=== PATIENT | female | born 1990 | race Caucasian/White ===

== ENCOUNTER → 2022-06-02 10:24 | Outpatient (BNVA) | payer BC, SELFPAY | PROVIDERS: PCP Nurse Practitioner Family; Visit Provider Nurse Practitioner Family | DX: Z13.220 Encounter for screening for lipoid disorders (principal); J30.2 Other seasonal allergic rhinitis | CPT/HCPCS: 80053; 80061 ==

== ENCOUNTER 2022-12-01 22:45 | Emergency (ER) | payer OTHER, SELFPAY ==
[2022-12-01 22:55] VITALS: BP 155/84; PULSE 103; RESP 16; TEMP 36.7; O2SAT 100; BMI 28.3
--- NOTE | 2022-12-01 23:12 | ED_ITS ---
HPI - General: Chief complaint: Vaginal Bleeding Stated complaint: abd pain/ 8 weeks Time Seen by Provider: 12/01/22 22:50 History of Present Illness: 32-year-old female comes in today with complaints of lower abdominal cramping and spotting. Patient's last menstrual cycle was 16 October. Patient believes that she is approximately 8 weeks . Patient came in tonight due to having to blood clots with urination. Patient denies any heavy bleeding. Patient appears nontoxic. Patient has had 1 other with 1 live , and patient has been on control, Depo-Medrol since then. Patient stopped Depo-Medrol in August when her last shot was due with planning for . Associated symptoms: Reports malaise Review of Systems Const: Reports: chills and malaise; Denies: fever(s) : Reports: vaginal bleeding (Spotting) and pelvic pain PFS ED PFSH: Social History Smoking and tobacco status: former smoker Physical Exam Const: COMMON NORMALS: alert HENMT: COMMON NORMALS: normocephalic HEAD & SCALP: normocephalic Neck/C-Spine: COMMON NORMALS: full ROM Resp: COMMON NORMALS: normal respiratory effort and clear to auscultation bilaterally AUSCULTATION: clear to auscultation bilaterally Cardio: COMMON NORMALS: regular rate and regular rhythm RATE: regular rate RHYTHM: regular rhythm : COMMON NORMALS: Yes no CVA tenderness BLADDER/KIDNEY EXAM: Yes no CVA tenderness Back/Pelvis: COMMON NORMALS: no CVA tenderness and thoracic and lumbar spine normal to inspection Extremity: COMMON NORMALS: normal to inspection and no pedal edema Neuro: SENSORIUM/ORIENTATION: Yes alert Skin: COMMON NORMALS: turgor normal GENERAL SKIN EXAM: turgor normal Course Vital Signs: Vital signs: Vital Signs Temperature 98.1 F 12/02/22 01:09 Pulse Rate 103 H 12/02/22 01:09 Respiratory Rate 16 12/02/22 01:09 Blood Pressure 155/84 12/02/22 01:09 Pulse Oximetry 100 12/02/22 01:09 Oxygen Delivery Me thod Room Air 12/01/22 22:55 MDM - OB/Uterine Contractions Medical Decision Making 32-year-old female comes in today for complaints of lower abdominal cramping and spotting. Patient is approximately 8 weeks . Patient appears nontoxic. Patient appears in no pain. No CVA tenderness. No abdominal pain. Vital signs are normal except for some mild elevation of blood pressure 155 systolic. Differential diagnosis includes threatened miscarriage, urinary tract infection, subchorionic hemorrhage, ectopic . Patient CBC was normal. CMP did not have some changes in her sodium and potassium with at 135 and 3.4. Remainder of CMP was normal. Urinalysis was clean. Patient was given some lactated Ringer's for concerns of dehydration. Ultrasound of the fetus noted a in utero and with a heart rate of 176 and no signs of subchorionic hemorrhage or other abnormality. There was a uterine fibroid noted and minimal to no blood flow noted to the left ovary. I reviewed this with Dr. Garcia who recommended the contact Dr. Rosen, QU[facility] SUPERVISOR for further recommendations. I discussed with Dr. Rosen abnormality on the ultrasound he felt that the patient was not symptomatic most likely and did not require any intervention at this time. Patient was recommended to follow-up with [facility] SUPER[facility]OR for further evaluation and treatment with recommendations to return to the ER for worsening symptoms such as increased pain, fever greater than 100.4, or bleeding greater than 1 pad an hour. Patient reported understanding and agreed to plan. Lab Data 12/01/22 22:59 12/01/22 22:59 Laboratory Results WBC 10.94 10^3/uL (3.29-11.43) 12/01/22 22:59 RBC 4.43 10^6/uL (3.85-5.65) 12/01/22 22:59 Hgb 13.60 g/dL (11.27-16.99) 12/01/22 22:59 Hct 39.3 % (36-47) 12/01/22 22:59 MCV 88.7 fl (85-98) 12/01/22 22:59 MCH 30.7 pg (27-33) 12/01/22 22: MCHC 34.6 g/dL (30-55) 12/01/22 22:59 RDW 11.7 % (12.1-15.1) L 12/01/22 22:59 Plt Count 290 10^3/cmm (157-399) 12/01/22 22: MPV 9.4 fL (7.4-10.4) 12/01/22 22:59 Neut % (Auto) 57.3 % 12/01/22 22:59 Lymph % (Auto) 31.5 % 12/01/22 22:59 Rowan % (Auto) 7.4 % 12/01/22 22:59 Eos % (Auto) 2.9 % 12/01/22 22:59 Baso % (Auto) 0.6 % 12/01/22 22:59 Neut # (Auto) 6.26 10^3/uL (1.8-7.7) 12/01/22 22:59 Lymph # (Auto) 3.5 10^3/uL (0.8-4.8) 12/01/22 22:59 Rowan # (Auto) 0.8 10^3/uL (0.2-0.9) 12/01/22 22:59 Eos # (Auto) 0.3 10^3/uL (0.0-0.8) 12/01/22 22:59 Baso # (Auto) 0.1 10^3/uL (0.0-0.1) 12/01/22 22:59 Nucleated RBC % (auto) 0 % 12/01/22 22:59 Nucleated RBCs # 0.0 /100WBC 12/01/22 22:59 Sodium 135 mmol/L (136-145) L 12/01/22 22:59 Potassium 3.4 mmol/L (3.5-5.1) L 12/01/22 22:59 Chloride 100 mmol/L (98-107) 12/01/22 22:59 Carbon Dioxide 23 mmol/L (22-29) 12/01/22 22:59 Anion Gap 15.4 (5-19) 12/01/22 22:59 BUN 8 mg/dL (6-20) 12/01/22 22:59 Creatinine 0.5 mg/dL (0.5-0.9) 12/01/22 22:59 GFR Calculation 141.2 mL/min (90-130) H 12/01/22 22:59 Glucose 121 mg/dL (65-115) H 12/01/22 22:59 Calculated Osmolality 280 mOsm/kg (285-295) L 12/01/22 22:59 Calcium 9.2 mg/dL (8.5-10.5) 12/01/22 22:59 Total Bilirubin 0.3 mg/dL (0.15-1.2) 12/01/22 22:59 AST 11 U/L (0-32) 12/01/22 22:59 ALT 16 U/L (0-33) 12/01/22 22:59 Alkaline Phosphatase 65 U/L (35-105) 12/01/22 22:59 Total Protein 7.0 g/dL (6.6-8.7) 12/01/22 22:59 Albumin 4.5 g/dL (3.5-5.2) 12/01/22 22:59 Globulin 2.5 g/dL (1.3-4.6) 12/01/22 22:59 Lipase 48 U/L (13-60) 12/01/22 22:59 HCG, Qual Positive (Negative) H 12/01/22 22:59 Ser , Semi-Qnt 321783.00 mIU/mL 12/01/22 22:59 Urine Color Yellow (Yellow) 12/01/22 23:35 Urine Appearance Clear (CLEAR) 12/01/22 23:35 Urine pH 7 (5-7) 12/01/22 23:35 Ur Specific [place] 1.015 (1.005-1.030) 12/01/22 23:35 Urine Protein Neg (Negative) 12/01/22 23:35 Urine Glucose (UA) Norm (Normal) 12/01/22 23:35 Urine Ketones 1+ (Negative) H 12/01/22 23:35 Urine Blood Neg (Negative) 12/01/22 23:35 Urine Nitrate Negative (Negative) 12/01/22 23:35 Urine Bilirubin Neg (Negative) 12/01/22 23:35 Urine Urobilinogen Neg mg/dL (Negative) 12/01/22 23:35 Ur Leukocyte Esterase Negative (Negative) 12/01/22 23:35 XR interpretation done by ED provider, pending radiology final review Discharge Plan Discharge Patient Disposition: Home Clinical Impression: Bleeding in early Condition: Stable Prescriptions: New Diclegis 10-10 mg tablet,delayed release (DR/EC) 1 tab PO BID Qty: 20 0RF No Action medroxyprogesterone [Depo-Provera] 150 mg/mL suspension 150 mg IM ONCE Qty: 1 3RF cephalexin 500 mg capsule 500 mg PO TID 10 Days Qty: 30 0RF multivitamin Tablet 1 tab PO DAILY Discharge Orders: Discharge ED (Routine); Ordered 12/02/22 Ordered By: Nraen Ritter Referrals: Nubia Lion NP [Primary Care Provider] - Discharge Diet: Usual diet Discharge Activity: Increase activity as tolerated Patient Instructions: Threatened Miscarriage (ED) Activity Restrictions/Additional Instructions: Drink plenty water and fluids. Eat a healthy diet. Activity as tolerated. Follow-up with [facility]TER SUPERVISOR for further evaluation and treatment. Return to ER for worsening symptoms such as bleeding through 1 pad more an hour, fever greater than 100.4, or uncontrolled abdominal pain. Coding Level of Care Code ED Prestidigitator for Holly Anderson
[2022-12-01 23:13] LABS: Basophils # 0.1 10^3/uL (0.0-0.1); Basophils % 0.6 %; Eosinophils # 0.3 10^3/uL (0.0-0.8); Eosinophils % 2.9 %; Hematocrit 39.3 % (36-47); Lymphocytes # 3.5 10^3/uL (0.8-4.8); Lymphocytes % 31.5 %; Mean Corpuscular HGB Conc 34.6 g/dL (30-55); Mean Corpuscular Hemoglobin 30.7 pg (27-33); Mean Corpuscular Volume 88.7 fl (85-98); Mean Platelet Volume 9.4 fL (7.4-10.4); Monocytes # 0.8 10^3/uL (0.2-0.9); Monocytes % 7.4 %; Neutrophils # 6.26 10^3/uL (1.8-7.7); Neutrophils % 57.3 %; Nucleated Red Blood Cells % 0 %; Platelet Count 290 10^3/cmm (157-399); Red Blood Count 4.43 10^6/uL (3.85-5.65); Red Cell Distribution Width 11.7 % (12.1-15.1); White Blood Count 10.94 10^3/uL (3.29-11.43)
[2022-12-01 23:22] LABS: Alanine Aminotransferase 16 U/L (0-33); Albumin Level 4.5 g/dL (3.5-5.2); Alkaline Phosphatase 65 U/L (35-105); Anion Gap 15.4 (5-19); Aspartate Amino Transferase 11 U/L (0-32); Blood Urea Nitrogen 8 mg/dL (6-20); Calcium 9.2 mg/dL (8.5-10.5); Carbon Dioxide 23 mmol/L (22-29); Chloride 100 mmol/L (98-107); Globulin 2.5 g/dL (1.3-4.6); Glomerular Filtration Rate 141.2 mL/min (90-130); Glucose 121 mg/dL (65-115); Lipase 48 U/L (13-60); Osmolality Calculated 280 mOsm/kg (285-295); Potassium 3.4 mmol/L (3.5-5.1); Sodium 135 mmol/L (136-145); Total Bilirubin 0.3 mg/dL (0.15-1.2)
--- NOTE | 2022-12-01 23:23 | USR_ITS ---
PROCEDURE INFORMATION: Exam: US Duplex Artery or Vein of the Abdominal and/or Reproductive Organs, Limited Ovaries Exam date and time: 12/02/2022 12:02 AM Age: 32 years old Clinical indication: Lmp or gestational age (in weeks): 8w 5d by today's u/s; Antepartum complications; Bleeding; ; Patient HX: G2-p1, first vaginal. Spotting lightly last few days. ; Additional info: Bleeding early TECHNIQUE: Imaging protocol: Real-time duplex ultrasound scan of the arterial or venous flow with ring scale, color Doppler flow and spectral waveform analysis with image documentation. Limited duplex exam focused on the ovaries. Duplex exam was performed to evaluate for torsion and other vascular conditions. COMPARISON: No relevant prior studies available. FINDINGS: Right ovary/adnexa: Normal duplex of the ovary. Normal Doppler waveforms and color flow. No evidence of ovarian torsion. See below OB report for other findings. Left ovary/adnexa: Left ovary shows no arterial flow. See cine clip 4. The ovary is not enlarged, which is somewhat unusual for torsion. PROCEDURE INFORMATION: Exam: US First Trimester, Transabdominal and US , Transvaginal Exam date and time: 12/02/2022 12:02 AM Age: 32 years old Clinical indication: Lmp or gestational age (in weeks): 8w 5d by today's u/s; Antepartum complications; Bleeding; ; Patient HX: G2-p1, first vaginal. Spotting lightly last few days. ; Additional info: Bleeding early TECHNIQUE: Imaging protocol: Real-time transabdominal obstetrical ultrasound of the maternal pelvis and a first trimester , less than 14 weeks 0 days, with image documentation. Transvaginal imaging was used for better evaluation of the fetus, adnexa, and/or cervix. COMPARISON: No relevant prior studies available. FINDINGS: Gestation: Intrauterine gestation. Yolk sac is unremarkable. Embryonic/ heart rate: 176 bpm. Extra-embryonic membranes/Placenta: Unremarkable. No subchorionic bleed. Amniotic fluid: Amniotic fluid and extra-amniotic fluid is normal for gestational age. BIOMETRY: Gestational age (AUA): 8 weeks 5 days with LADARIUS of 07/09/2023. MATERNAL: Uterus: Contains a small fibroid measuring about 3.9 x 2.2 x 3.1 cm. This is anterior and submucosal. . Cervix: Unremarkable. Right ovary/adnexa: 4.4 cm probable corpus luteum cyst. This enlarges the right ovary to 85 cc volume. Left ovary/adnexa: Left ovarian arterial flow not demonstrated. Intraperitoneal space: No intraperitoneal free fluid. US/US OB <= 14 weeks fetus [id number] IMPRESSION: Concern for LEFT ovarian torsion. Advise agricultural services director consult. Call to provider has been initiated. IMPRESSION: 1. Single live IUP as described. Full details above. 2. Concern for LEFT ovarian torsion. Advise agricultural services director consult. Call to provider has been initiated. 3. Right ovarian 4.4 cm probable corpus luteum cyst.
[2022-12-01 23:26] LABS: HCG, Serum Qual Positive (Negative)
[2022-12-01 23:43] LABS: Add Urine Microscopic? NO; Charge for UA Resulting for Rev
[2022-12-01 23:44] LABS: Bilirubin Urine Neg (Negative); Blood Urine Neg (Negative); Glucose Urine UA Norm (Normal); Ketones Urine 1+ (Negative); Leukocyte Esterase Urine Negative (Negative); Nitrate Urine Negative (Negative); Protein Urine Neg (Negative); Specific Gravity, Urine 1.015 (1.005-1.030); Urine Appearance Clear (CLEAR); Urine Color Yellow (Yellow); Urobilinogen Urine Neg (Negative); pH Urine 7 (5-7)
[2022-12-01] MEDS: lactated ringers 1,000 ML 999 ML IV (23:49)
[2022-12-02 01:09] VITALS: BP 155/84; PULSE 103; RESP 16; TEMP 36.7; O2SAT 100
== END 2022-12-02 01:10 | disposition home or self-care (01) ==
PROVIDERS: Emergency Medicine; Emergency Provider Nurse Practitioner Family; PCP Nurse Practitioner Family
DX: O20.9 Hemorrhage in early pregnancy, unspecified (principal); Z87.891 Personal history of nicotine dependence; Z3A.08 8 weeks gestation of pregnancy
CPT/HCPCS: 36415; 76801; 80053; 81003; 83690; 84702; 84703; 85025; 96360; 99284; J7120

== ENCOUNTER → 2023-01-04 09:37 | Outpatient (BNVA) | payer OTHER, SELFPAY | PROVIDERS: PCP Nurse Practitioner Family; Visit Provider Nurse Practitioner Women's Health | DX: Z36.9 Encounter for antenatal screening, unspecified (principal); Z34.90 Encounter for supervision of normal pregnancy, unspecified, unspecified trimester; Z3A.00 Weeks of gestation of pregnancy not specified | CPT/HCPCS: 80307; 84315; 85027; 86592; 86762; 86803; 86850; 86900; 87086; 87340; 87806 ==

== ENCOUNTER → 2023-01-07 12:47 | Outpatient (BNVA) | payer OTHER, SELFPAY | PROVIDERS: PCP Nurse Practitioner Family; Visit Provider Obstetrics & Gynecology | DX: Z34.91 Encounter for supervision of normal pregnancy, unspecified, first trimester (principal); Z3A.14 14 weeks gestation of pregnancy | CPT/HCPCS: 76801 ==

== ENCOUNTER → 2023-01-18 10:14 | Outpatient (BNVA) | payer OTHER, SELFPAY | PROVIDERS: PCP Nurse Practitioner Family; Visit Provider Obstetrics & Gynecology | DX: Z34.80 Encounter for supervision of other normal pregnancy, unspecified trimester (principal); Z3A.00 Weeks of gestation of pregnancy not specified | CPT/HCPCS: 84315; 87491; 87591; 87624 ==

== ENCOUNTER → 2023-01-26 13:54 | Outpatient (BNVA) | payer OTHER, SELFPAY | PROVIDERS: PCP Nurse Practitioner Family; Visit Provider Nurse Practitioner Women's Health | DX: Z34.80 Encounter for supervision of other normal pregnancy, unspecified trimester (principal); Z3A.00 Weeks of gestation of pregnancy not specified; R87.615 Unsatisfactory cytologic smear of cervix | CPT/HCPCS: 82105; 84315; 88175 ==

== ENCOUNTER → 2023-02-24 12:26 | Outpatient (BNVA) | payer OTHER, SELFPAY | PROVIDERS: PCP Nurse Practitioner Family; Visit Provider Nurse Practitioner Women's Health | DX: Z34.92 Encounter for supervision of normal pregnancy, unspecified, second trimester (principal); Z3A.20 20 weeks gestation of pregnancy | CPT/HCPCS: 76805 ==

== ENCOUNTER → 2023-03-25 10:00 | Outpatient (BNVA) | payer OTHER, SELFPAY | PROVIDERS: PCP Nurse Practitioner Family; Visit Provider Nurse Practitioner Women's Health | DX: Z34.80 Encounter for supervision of other normal pregnancy, unspecified trimester (principal); Z3A.00 Weeks of gestation of pregnancy not specified | CPT/HCPCS: 82950; 84315 ==

== ENCOUNTER → 2023-04-22 08:07 | Outpatient (BNVA) | payer OTHER, SELFPAY | PROVIDERS: PCP Nurse Practitioner Family; Visit Provider Obstetrics & Gynecology | DX: Z34.80 Encounter for supervision of other normal pregnancy, unspecified trimester (principal); Z3A.00 Weeks of gestation of pregnancy not specified | CPT/HCPCS: 84315; 85025 ==

== ENCOUNTER → 2023-05-06 07:52 | Outpatient (BNVA) | payer OTHER, SELFPAY | PROVIDERS: PCP Nurse Practitioner Family; Visit Provider Obstetrics & Gynecology | DX: Z34.80 Encounter for supervision of other normal pregnancy, unspecified trimester (principal); Z3A.00 Weeks of gestation of pregnancy not specified | CPT/HCPCS: 84315; 87086 ==

== ENCOUNTER → 2023-05-20 07:51 | Outpatient (BNVA) | payer OTHER, SELFPAY | PROVIDERS: PCP Nurse Practitioner Family; Visit Provider Obstetrics & Gynecology | DX: Z34.80 Encounter for supervision of other normal pregnancy, unspecified trimester (principal); Z3A.00 Weeks of gestation of pregnancy not specified | CPT/HCPCS: 80053; 81000; 82570; 84156; 84315; 84550; 85025 ==

== ENCOUNTER → 2023-05-27 14:53 | Outpatient (BNVA) | payer OTHER, SELFPAY | PROVIDERS: PCP Nurse Practitioner Family; Visit Provider Obstetrics & Gynecology | DX: Z34.90 Encounter for supervision of normal pregnancy, unspecified, unspecified trimester (principal); Z3A.00 Weeks of gestation of pregnancy not specified | CPT/HCPCS: 81000 ==

== ENCOUNTER → 2023-06-01 08:21 | Outpatient (BNVA) | payer OTHER, SELFPAY | PROVIDERS: PCP Nurse Practitioner Family; Visit Provider Nurse Practitioner Women's Health | DX: O12.13 Gestational proteinuria, third trimester (principal); Z3A.00 Weeks of gestation of pregnancy not specified | CPT/HCPCS: 82570; 84156; 84315 ==

== ENCOUNTER 2023-06-04 13:44 | Outpatient (CLI) | payer OTHER, SELFPAY ==
[2023-06-04 14:37] LABS: Total Volume, Urine 1000 mL
[2023-06-04 14:39] LABS: Urine Total Protein 18.7 mg/dL (0-150)
== END 2023-06-04 13:45 | disposition home or self-care (01) ==
LOC: LAB 13:45
PROVIDERS: PCP Nurse Practitioner Family; Visit Provider Nurse Practitioner Women's Health
DX: O12.13 Gestational proteinuria, third trimester (principal); Z3A.00 Weeks of gestation of pregnancy not specified
CPT/HCPCS: 84156

== ENCOUNTER → 2023-06-15 15:37 | Outpatient (BNVA) | payer OTHER, SELFPAY | PROVIDERS: PCP Nurse Practitioner Family; Visit Provider Nurse Practitioner Women's Health | DX: Z34.93 Encounter for supervision of normal pregnancy, unspecified, third trimester (principal); Z3A.36 36 weeks gestation of pregnancy | CPT/HCPCS: 76816 ==

== ENCOUNTER → 2023-06-17 08:01 | Outpatient (BNVA) | payer OTHER, SELFPAY | PROVIDERS: PCP Nurse Practitioner Family; Visit Provider Obstetrics & Gynecology | DX: Z34.80 Encounter for supervision of other normal pregnancy, unspecified trimester (principal); Z3A.00 Weeks of gestation of pregnancy not specified | CPT/HCPCS: 84315; 85025; 87081 ==

== ENCOUNTER 2023-06-26 00:38 | Inpatient (IN) | payer OTHER, SELFPAY ==
[2023-06-25 23:58] VITALS: BMI 28.7
[2023-06-26] VITALS (98 sets, daily range): BP systolic 128–191; BP diastolic 71–100; PULSE 60–83; RESP 18; TEMP 36.7–36.9
[2023-06-26 00:39] LABS: Basophils # 0.1 10^3/uL (0.0-0.1); Basophils % 0.5 %; Eosinophils # 0.2 10^3/uL (0.0-0.8); Eosinophils % 1.4 %; Hematocrit 36.8 % (36-47); Lymphocytes # 3.3 10^3/uL (0.8-4.8); Lymphocytes % 26.5 %; Mean Corpuscular HGB Conc 33.4 g/dL (30-55); Mean Corpuscular Hemoglobin 30.8 pg (27-33); Mean Corpuscular Volume 92.2 fl (85-98); Mean Platelet Volume 12.6 fL (7.4-10.4); Monocytes # 1.1 10^3/uL (0.2-0.9); Monocytes % 8.7 %; Neutrophils # 7.68 10^3/uL (1.8-7.7); Neutrophils % 61.5 %; Nucleated Red Blood Cells % 0 %; Platelet Count 164 10^3/cmm (157-399); Red Blood Count 3.99 10^6/uL (3.85-5.65); White Blood Count 12.46 10^3/uL (3.29-11.43)
[2023-06-26] MEDS: dextrose 5%-lactated ringers 1,000 ML 125 ML IV (00:40)
[2023-06-26] MEDS: labetalol 5 mg/mL SDV 20mL 20 MG IVP ×5 (00:43→15:37)
[2023-06-26 01:05] LABS: Alanine Aminotransferase 10 U/L (0-33); Albumin Level 3.3 g/dL (3.5-5.2); Alkaline Phosphatase 294 U/L (35-105); Anion Gap 17.5 (5-19); Aspartate Amino Transferase 14 U/L (0-32); Blood Urea Nitrogen 11 mg/dL (6-20); Calcium 8.9 mg/dL (8.5-10.5); Carbon Dioxide 18 mmol/L (22-29); Chloride 107 mmol/L (98-107); Creatinine Clr Calc Pharmacy 129.8434; Globulin 2.8 g/dL (1.3-4.6); Glomerular Filtration Rate 95.8 mL/min (90-130); Glucose 80 mg/dL (65-115); Osmolality Calculated 286 mOsm/kg (285-295); Potassium 3.5 mmol/L (3.5-5.1); Sodium 139 mmol/L (136-145); Total Bilirubin 0.2 mg/dL (0.15-1.2); Total Protein 6.1 g/dL (6.6-8.7); Uric Acid 6.7 mg/dL (2.4-5.7)
[2023-06-26] MEDS: oxytocin 30 UNIT/500 ML BAG 600 UNIT IV (01:29)
--- NOTE | 2023-06-26 01:34 | PM.OPHPUD ---
Labor & Delivery H&P Update Date of Procedure: June 26, 2023 Date H&P Performed: 06/24/23 H&P update information: I have reviewed H&P completed within last 30 days, I have examined patient prior to procedure and Changes to prior documentation as noted here (Cervix: 10/100%/+2/cephalic/intact membrane) Admission Diagnosis:
--- NOTE | 2023-06-26 01:35 | P.PCNOB_ITS ---
Delivery Note: Date of delivery: June 26, 2023 Pre-delivery diagnoses: Term Post-delivery diagnoses: Term delivered Procedure: Spontaneous vaginal delivery Delivering Physician: Clyde Alicia MD Estimated blood loss (mL): 300 Pre-Delivery Course: Ms. Dye is a 32 year old established patient with an LMP of 10/06/2022, an LADARIUS of 07/13/2023 based on LMP and consistent with 8 week sonogram her at 37- 4/7 weeks gestation today. who has been receiving care from [facility] [place]. She has been experiencing painful uterine contractions for the past 4 hours. The contractions are occurring at 2 minute intervals with approximately 30 second duration. She continues to feel movement between the contractions. She denies vaginal bleeding or rupture of membranes. CC: Onset of labor at term. HPI: Received appropriate care. Daily vitamins since start of care. labs have all been normal, including negative for HIV. She was found to negative for Group B Strep from screening at 36 weeks. She has gained approximately 33 lbs throughout the . She denies a history of HTN during . Glucose tolerance screening for gestational diabetes was negative. Delivery: The patient was noted to be complete and pushing, so was placed in the dorsal lithotomy position, prepped and draped in the usual sterile fashion for a vaginal delivery. Pt. Noted to have epidural anesthesia. At 0122 the patient delivered a viable term female weighing 3280 g with scores of 9 and 9 at one and five minutes, respectively. The vertex was delivered spontaneously over intact perineum. The patient was asked to push and the head delivered spontaneously in the FARRUKH position, over an intact perineum. A nuchal cord was checked and none noted. The anterior shoulder delivered easily and the posterior shoulder followed. The remainder of the infant was easily delivered and the oropharynx and nasopharynx was bulb suctioned. The infant was noted to have spontaneous cry and spontaneous movement of all four extremities. The cord was clamped x 2 and cut and noted to have 2 arteries and one vein. The was passed to the mother's abdomen where nursing personnel were in attendance. The placenta delivered intact spontaneously and the uterus was explored. 20 units of Pitocin was placed in the IV bag to firm the uterus. Examination of the cervix and vaginal vault did not reveal any lacerations. A vaginal pack was then placed. Examination of the perineum showed no lacerations. The patient tolerated this procedure well, and recovered in L&D with her infant in their LDR room. All sponge and needle counts were correct. Post-Delivery Status: Good and stable History History History 2 Term 1 0 Miscarriages/Ectopic 0 Living Children 1 A&P Assessment and plan (1) Term delivered: Plan observation Coding Level of Care Code Acute Code for Chg Fwd Diagnoses Term delivered O80
[2023-06-26 02:53] LABS: Add Urine Microscopic? YES; Bilirubin Urine Neg (Negative); Blood Urine 3+ (Negative); Glucose Urine UA Norm (Normal); Ketones Urine 1+ (Negative); Leukocyte Esterase Urine Negative (Negative); Nitrate Urine Negative (Negative); Protein Urine 2+ (Negative); Urine Appearance SL Hazy (CLEAR); Urine Color Straw (Yellow); Urobilinogen Urine Neg (Negative); pH Urine 6 (5-7)
[2023-06-26 03:00] LABS: Add Urine Culture? Yes; Bacteria Urine 2+ /hpf; Mucus Urine TRACE /hpf; RBC Urine 15-25 /hpf (0-2); Squamous Epithelial Cell Urine 0-4 /hpf (0-5); WBC Urine 0-4 /hpf (0-5)
[2023-06-26 03:01] LABS: Amorphous Sediment Urine 1+ /hpf
[2023-06-26 03:17] LABS: UPRO/UCREAT Ratio 1.89 mg/mg CR; Urine Creatinine 71 mg/dL (28-217); Urine Protein Random 134 mg/dL
[2023-06-26] MEDS: magnesium sulfate premix 4 GM/100 ML PREMIX IV (03:57)
[2023-06-26] MEDS: magnesium sulfate premix 20 GM/500 ML BAG IV ×2 (04:18→14:31)
--- NOTE | 2023-06-26 05:30 | PC.NURSE ---
Patient still hesitant to have a catheter placed but was unable to void in bedpan. Educated patient on importance of emptying bladder for uterine involution and bleeding as well as monitoring output while on magnesium sulfate. Offered patient Dermaplast before catheter placement to help ease discomfort. Patient agreed to have indwelling catheter placed at this time.
[2023-06-26] MEDS: labetalol 5 mg/mL SDV 20mL 40 MG IVP ×2 (05:44→16:22)
[2023-06-26] MEDS: lanolin oint 7 gm 1 APPLIC TOPICAL (07:19)
[2023-06-26 10:02] LABS: Magnesium Level (OB Only) 4.7 mg/dL (5.0-7.5)
[2023-06-26] MEDS: dextrose 5%-lactated ringers 1,000 ML 75 ML IV (12:00)
[2023-06-26 16:13] LABS: Hematocrit 30.1 % (36-47); Mean Corpuscular HGB Conc 33.6 g/dL (30-55); Mean Corpuscular Hemoglobin 30.8 pg (27-33); Mean Corpuscular Volume 91.8 fl (85-98); Platelet Count 133 10^3/cmm (157-399); Red Blood Count 3.28 10^6/uL (3.85-5.65); Red Cell Distribution Width 13.9 % (12.1-15.1); White Blood Count 11.85 10^3/uL (3.29-11.43)
[2023-06-26 16:40] LABS: Magnesium Level (OB Only) 5.9 mg/dL (5.0-7.5)
[2023-06-26] MEDS: hyDRALAzine 20 mg/mL INJ 1 mL 5 MG IVP (21:16)
[2023-06-26 23:57] LABS: Magnesium Level (OB Only) 6.2 mg/dL (5.0-7.5)
[2023-06-27] VITALS (26 sets, daily range): BP systolic 128–182; BP diastolic 69–107; PULSE 68–113; TEMP 36.9
[2023-06-27] MEDS: magnesium sulfate premix 20 GM/500 ML BAG IV (00:47)
[2023-06-27] MEDS: dextrose 5%-lactated ringers 1,000 ML 75 ML IV (00:47)
[2023-06-27] MEDS: labetalol 200 mg Tablet 100 MG PO ×2 (09:38→17:00)
--- NOTE | 2023-06-27 16:53 | PM.OBGYDC ---
Discharge Providers [employer]MING [employer]OL OPERATOR Date of Admission: 06/26/23 00:38 Date of Discharge: 06/27/23 Attending Provider at Admission: Clyde Alicia MD Attending Provider at Discharge: Clyde Alicia MD Primary FORMING [employer]ARDAGE CONTROL OPERATOR: Clyde Alicia MD Primary Care Provider: Nubia Lion NP Diagnoses at Discharge Discharge Diagnosis (1) Term delivered: Status: Acute Reason for Visit Reason for Visit: back pain, ctx Hospital Course Hospital Course Ms. Dye is a 32 year old established patient with an LMP of 10/06/2022, an LADARIUS of 07/13/2023 based on LMP and consistent with 8 week sonogram placing her her at 37-4/7 weeks gestation when she came to labor and delivery with contractions. She has been receiving care from [facility]. She progressed rapidly to have a spontaneous vaginal delivery without complications. Shortly after delivery her blood pressure reached severe preeclampsia levels and preeclampsia workup was ordered. Preeclampsia workup was diagnostic and she was started on magnesium sulfate for seizure prophylaxis and treated with labetalol and hydralazine to control blood pressure. Magnesium sulfate was continued for 24 hours after delivery, she diuresis. Blood pressure continue elevated, she was started on labetalol p.o. she is afebrile hemodynamically stable day 1. Tolerating diet well. Ambulating without difficulty. Patient was counseled regarding pelvic rest for 6 weeks (no sex, no tampons, no vaginal douches). Return to the emergency room if any fever, increased bleeding or pain. And instructed to follow-up at the clinic and to monitor blood pressure at home. Information Peripartum Data: Infant Delivery Method: Vaginal Physical Exam Narrative: GA; alert and oriented x 3 HEENT: normal Breasts: engorged Nipples - skin intact Lungs; clear to auscultation Heart: regular rhythm, no murmurs. Abd: Appropriately tender. BS+. Uterine fundus below umbilicus. No Fundal Tenderness. Perineum: normal lochia. Extremities: no edema, no cyanosis, no tenderness. Urinary Catheter Management: Werner: Cath Placed During This Visit: yes, but has since been removed by the nurse Reason for Continuing Indwelling Catheter: Decision to DC Catheter Urinary Catheter Date of Insertion: 06/26/23 Urinary Catheter Time of Insertion: 05:45 Date Urinary Catheter Removed: 06/27/23 Time Urinary Catheter Discontinued: 04:02 History History History 2 Term 1 0 Miscarriages/Ectopic 0 Living Children 1 Discharge Data Studies Completed and Pending Pending at discharge Category Date Time Status Urine Culture Routine Lab 06/26/23 02:40 Results Laboratory Results WBC 11.85 10^3/uL (3.29-11.43) H 06/26/23 16:00 RBC 3.28 10^6/uL (3.85-5.65) L 06/26/23 16:00 Hgb 10.10 g/dL (11.27-16.99) L 06/26/23 16:00 Hct 30.1 % (36-47) L 06/26/23 16:00 MCV 91.8 fl (85-98) 06/26/23 16:00 MCH 30.8 pg (27-33) 06/26/23 16:00 MCHC 33.6 g/dL (30-55) 06/26/23 16:00 RDW 13.9 % (12.1-15.1) 06/26/23 16:00 Plt Count 133 10^3/cmm (157-399) L 06/26/23 16:00 MPV 13.0 fL (7.4-10.4) H 06/26/23 16:00 Neut % (Auto) 61.5 % 06/26/23 00:17 Lymph % (Auto) 26.5 % 06/26/23 00:17 [place]ton % (Auto) 8.7 % 06/26/23 00:17 Eos % (Auto) 1.4 % 06/26/23 00:17 Baso % (Auto) 0.5 % 06/26/23 00:17 Neut # (Auto) 7.68 10^3/uL (1.8-7.7) 06/26/23 00:17 Lymph # (Auto) 3.3 10^3/uL (0.8-4.8) 06/26/23 00:17 Charlton # (Auto) 1.1 10^3/uL (0.2-0.9) H 06/26/23 00:17 Eos # (Auto) 0.2 10^3/uL (0.0-0.8) 06/26/23 00:17 Baso # (Auto) 0.1 10^3/uL (0.0-0.1) 06/26/23 00:17 Nucleated RBC % (auto) 0 % 06/26/23 00:17 Nucleated RBCs # 0.0 /100WBC 06/26/23 00:17 Sodium 139 mmol/L (136-145) 06/26/23 00:40 Potassium 3.5 mmol/L (3.5-5.1) 06/26/23 00:40 Chloride 107 mmol/L (98-107) 06/26/23 00:40 Carbon Dioxide 18 mmol/L (22-29) L 06/26/23 00:40 Anion Gap 17.5 (5-19) 06/26/23 00:40 BUN 11 mg/dL (6-20) 06/26/23 00:40 Creatinine 0.7 mg/dL (0.5-0.9) 06/26/23 00:40 GFR Calculation 95.8 mL/min (90-130) 06/26/23 00:40 Glucose 80 mg/dL (65-115) 06/26/23 00:40 Calculated Osmolality 286 mOsm/kg (285-295) 06/26/23 00:40 Uric Acid 6.7 mg/dL (2.4-5.7) H 06/26/23 00:40 Calcium 8.9 mg/dL (8.5-10.5) 06/26/23 00:40 Magnesium 6.2 mg/dL (5.0-7.5) 06/26/23 23:02 Total Bilirubin 0.2 mg/dL (0.15-1.2) 06/26/23 00:40 AST 14 U/L (0-32) 06/26/23 00:40 ALT 10 U/L (0-33) 06/26/23 00:40 Alkaline Phosphatase 294 U/L (35-105) H 06/26/23 00:40 Total Protein 6.1 g/dL (6.6-8.7) L 06/26/23 00:40 Albumin 3.3 g/dL (3.5-5.2) L 06/26/23 00:40 Globulin 2.8 g/dL (1.3-4.6) 06/26/23 00:40 Urine Color Straw (Yellow) 06/26/23 02:40 Urine Appearance Sl hazy (CLEAR) A 06/26/23 02:40 Urine pH 6 (5-7) 06/26/23 02:40 Ur Specific [place] 1.010 (1.005-1.030) 06/26/23 02:40 Urine Protein 2+ (Negative) H 06/26/23 02:40 Urine Glucose (UA) Norm (Normal) 06/26/23 02:40 Urine Ketones 1+ (Negative) H 06/26/23 02:40 Urine Blood 3+ (Negative) H 06/26/23 02:40 Urine Nitrate Negative (Negative) 06/26/23 02:40 Urine Bilirubin Neg (Negative) 06/26/23 02:40 Urine Urobilinogen Neg mg/dL (Negative) 06/26/23 02:40 Ur Leukocyte Esterase Negative (Negative) 06/26/23 02:40 Urine RBC 15-25 /hpf (0-2) H 06/26/23 02:40 Urine WBC 0-4 /hpf (0-5) H 06/26/23 02:40 Ur Squamous Epith Cells 0-4 /hpf (0-5) H 06/26/23 02:40 Amorphous Sediment 1+ /hpf 06/26/23 02:40 Urine Bacteria 2+ /hpf (NONE) H 06/26/23 02:40 Urine Mucus Trace /hpf 06/26/23 02:40 U Random Total Protein 134 mg/dL 06/26/23 02:40 Urine Creatinine 71 mg/dL (28-217) 06/26/23 02:40 Protein/Creatinin Ratio 1.89 mg/mg CR 06/26/23 02:40 Blood Type B Positive 06/26/23 00:17 Rho(D) Type Rh positive 06/26/23 00:17 Antibody Screen Negative 06/26/23 00:17 Vitals Last Vital Signs Temp 98.4 F 06/27/23 02:30 Pulse 97 06/27/23 16:39 Resp 18 06/26/23 07:15 BP 157/84 06/27/23 16:39 O2 Del Method Room Air 06/26/23 01:50 Results Labs OB ([facility]): Obstetrics US 06/15/23 Blood Type B Positive 06/26/23 Antibody Screen Negative 06/26/23 Hct 30.1 % (36-47) L 06/26/23 Hgb 10.10 g/dL (11.27-16.99) L 06/26/23 Rho(D) Type Rh positive 06/26/23 Plt Count 133 10^3/cmm (157-399) L 06/26/23 Hep Bs Antigen Non-reactive (Nonreactive) 01/04/23 Hepatitis C Antibody Non-reactive (Nonreactive) 01/04/23 Rubella IgG Antibody 184.4 IU/mL (0.0-10.0) H 01/04/23 RPR Nonreactive (Nonreactive) 01/04/23 HIV 1&2 Ab & HIV 1 Ag Non-reactive (Non-Reactiv) 01/04/23 C.trachomatis RNA (TMA) Not detected (NOT DETECTED) 01/18/23 N.gonorrhoeae RNA (TMA) Not detected (NOT DETECTED) 01/18/23 T. vaginalis Amp RNA Not detected (NOT DETECTED) 01/18/23 Chlamydia/GC Comment See note 01/18/23 Gest Glucose Tolerance 137 mg/dL (70-139) 03/25/23 Uric Acid 6.7 mg/dL (2.4-5.7) H 06/26/23 Ser , Semi-Qnt 791912.00 mIU/mL 12/01/22 HCG, Qual Positive (Negative) H 12/01/22 Urine Opiates Screen Negative ng/mL (Negative) 01/04/23 Ur Barbiturates Screen Negative ng/mL (Negative) 01/04/23 Ur Phencyclidine Scrn Negative ng/mL (Negative) 01/04/23 Ur Amphetamines Screen Negative ng/mL (Negative) 01/04/23 U Benzodiazepines Scrn Negative ng/mL (Negative) 01/04/23 Urine Cocaine Screen Negative ng/mL (Negative) 01/04/23 U Marijuana (THC) Screen Negative ng/mL (Negative) 01/04/23 Micro Urine Specimen 06/26/23 Pap Smear Interpret See note 01/26/23 Discharge Plan Discharge Patient Disposition: Home Condition: Stable Prescriptions: New docusate sodium [Colace] 100 mg capsule 100 mg PO BID Qty: 60 1RF ibuprofen 800 mg tablet 800 mg PO TID PRN (Reason: pain) Qty: 60 0RF acetaminophen 325 mg capsule 325 mg PO Q4H PRN (Reason: fever or pain) Qty: 60 0RF ferrous sulfate [Iron (ferrous sulfate)] 325 mg (65 mg iron) tablet 325 mg PO BID Qty: 60 1RF labetalol 100 mg tablet 100 mg PO BID Qty: 30 1RF Continued Gummies 400 mcg-35 mg- 25 mg-5 mg tablet,chewable 1 tab PO DAILY Discharge Orders: Discharge Order (Routine); Ordered 06/27/23 Ordered By: Clyde Alicia Referrals: Clyde Alicia MD [Physician] - 2 weeks (Please call the clinic to make you 2 week follow up appointment with Dr. Alicia) Discharge Diet: Low Salt Discharge Activity: Limit activity as instructed Patient Instructions: How to Take Your Blood Pressure, Labetalol (By mouth), Depression (DC), Perineal Care (DC), Expression, Collection and Storage of Breast Milk (DC), How to Hold and Breastfeed Your Baby (DC), and Nipple Soreness (DC), and Breast Engorgement (DC), and Plugged Ducts (DC), How to Increase Your Milk Supply (DC), Bleeding (DC), Preeclampsia and Eclampsia After Delivery (GEN), Breast Care for the Mother (DC), OB Care at Home, Opioid Safety Activity Restrictions/Additional Instructions: 1. Please call [facility] on next working day to make your appointment in 1 week to monitor BP.. 2. Please stay home until you come back to the clinic on first post-hospatilization check up. 3. Please follow instructions on your medications CAREFULLY. 4. If you have abdominal incision, do not cover it unless dressing is necessary because of drainage. OK to shower, but avoid bath. Leave steri-strips until they fall off. If they are still on one week after surgery, you may remove them. 5. If you had vaginal surgery or vaginal repair, Dr. Alicia may instruct you to take SITZ bath. 6. Yellow, blood tinged odorous vaginal discharge is usually normal after hysterectomy or vaginal surgeries. 7. No SEXUAL INTERCOURSE, tampons, or douches until you are completely released from the post-operative care. 8. Avoid constipation by eating right and maybe using some Metamucil or Milk of Magnesia. 9. All prescription refills are given during the working hours. Please do no wait till it runs out. Call the clinic at [phone] before your medication runs out. The clinic will get in touch with your doctor to prescribe medications if necessary. 10. Please remain within 40 mile radius from our hospital because emergencies do happen now and then during the post-operative period. 11. If you have stairs at home, take one step at a time slowly and minimize the number of trips. It helps to stay in one floor for the next few days. No lifting except what you can lift by one hand until you are released from the post-operative care. 12. Driving is discouraged until you are well healed. It may be 3-4 weeks before you feel strong enough to drive. You should be able to turn and look through the rear window without pain and you should be able to push the brake pedal very hard without pain before you drive. No fast rules, but SAFETY should be your primary concern. DO NOT drive if you are on sedating medications such as narcotics. 13. Call the clinic (during working hours) to make urgent appointment or go to the Emergency room, if any of the following occurs: i. Vaginal bleeding becomes heavy, more than a period. ii. Incision becomes red and sore, or drains pus. iii. Your TEMPERATURE is over 100.4F or you have chill. iv. IV site becomes red and swollen (a little ``knot?? is usually OK) v. Persistent nausea and vomiting vi. Persistent constipation or diarrhea vii. Rash or allergic reaction to medications. Discharge Attestations FORMING [employer]ARDAGE CONTROL OPERATOR Time Spent in Discharge Care*: greater than 30 min Coding Level of Care Code Acute Code for Chg Fwd Diagnoses Term delivered O80
[2023-06-27] MEDS: hyDRALAzine 20 mg/mL INJ 1 mL 5 MG IVP (23:10)
[2023-06-27] MEDS: hyDRALAzine 20 mg/mL INJ 1 mL 10 MG IVP (23:45)
[2023-06-28] VITALS (18 sets, daily range): BP systolic 112–197; BP diastolic 58–92; PULSE 80–117
[2023-06-28] MEDS: hyDRALAzine 20 mg/mL INJ 1 mL IVP (00:55)
[2023-06-28] MEDS: NIFEdipine ER (24 hr) 30 mg Tablet PO ×2 (01:40→08:07)
[2023-06-28] MEDS: ibuprofen 800 mg tablet PO (08:07)
[2023-06-28] MEDS: PRENATAL VIT NO.130/IRON/FOLIC 1 EACH TABLET PO (08:07)
[2023-06-28] MEDS: docusate sodium 100 mg Capsule PO (08:07)
== END 2023-06-28 09:43 | disposition home or self-care (01) | DRG 807 ==
LOC: OPOB 00:43 → OBGYN 00:43
PROVIDERS: Admitting Provider Obstetrics & Gynecology; PCP Nurse Practitioner Family; Visit Provider Obstetrics & Gynecology
DX: O80 Encounter for full-term uncomplicated delivery (principal); Z37.0 Single live birth; Z3A.37 37 weeks gestation of pregnancy; O14.15 Severe pre-eclampsia, complicating the puerperium
CPT/HCPCS: 36415; 51702; 59025; 59409; 80053; 81001; 82570; 83735; 84156; 84550; 85025; 85027; 86850; 86900; 87086; 96374; 96376; 99211; J0360; J2590; J3475; J3490; J7121

== ENCOUNTER → 2023-09-13 14:05 | Outpatient (BNVA) | payer OTHER, SELFPAY | PROVIDERS: PCP Nurse Practitioner Family; Visit Provider Nurse Practitioner Family | DX: O90.81 Anemia of the puerperium (principal); O16.5 Unspecified maternal hypertension, complicating the puerperium; O92.4 Hypogalactia; R53.83 Other fatigue; B37.0 Candidal stomatitis | CPT/HCPCS: 80053; 82306; 83550; 84146; 84443; 85025 ==